=== PATIENT | female | born 1955 | race Caucasian/White ===

== ENCOUNTER → 2022-05-09 11:00 | Outpatient (BNVA) | payer MEDICARE, SELFPAY | PROVIDERS: PCP Nurse Practitioner Family; Visit Provider Psychiatry & Neurology Neurology | DX: G62.9 Polyneuropathy, unspecified (principal); R25.1 Tremor, unspecified; R26.9 Unspecified abnormalities of gait and mobility; G47.10 Hypersomnia, unspecified; R25.2 Cramp and spasm; R06.83 Snoring | CPT/HCPCS: 99202 ==

== ENCOUNTER 2022-05-30 12:41 | Outpatient (REF) | payer MEDICARE, MEDICAID, SELFPAY ==
--- NOTE | ~2022-05-30 | MR_ITS ---
EXAMINATION: MR BRAIN WITHOUT CONTRAST CLINICAL INFORMATION: Abnormalities of gait and mobility COMPARISON: None TECHNIQUE: Multiplanar multisequence MR imaging of the brain was obtained without intravenous contrast. FINDINGS: There is no acute infarct on diffusion-weighted imaging. There is no intracranial hemorrhage on iron-sensitive imaging. No extra-axial collection or mass effect/herniation. Patchy T2/FLAIR signal abnormality involving the supratentorial and predominantly periventricular white matter. No hydrocephalus. There is a degree of generalized cerebral volume loss with prominence of both the ventricles and sulcal spaces. However, there appears to be mildly disproportionate prominence of the ventricles. The major flow voids at the skull base are preserved. The midline structures are normal. The cerebellar tonsils are normally positioned. Evidence of postsurgical changes and deformity of the craniocervical junction with dorsal susceptibility artifact, ventral leaning of the dens process, and reversal of the usual cervical lordosis. Marrow signal is within normal limits. The visualized soft tissues are without significant abnormality. No signal abnormality within the paranasal sinuses or within the mastoid air cells. MR/MR head/brain wo con IMPRESSION: 1. Ventriculomegaly which appears somewhat out of proportion to the degree of cerebral volume loss. Recommend clinical correlation for normal pressure hydrocephalus. 2. Patchy T2/FLAIR signal abnormality involving the supratentorial and predominantly periventricular white matter. This may reflect sequela of chronic microvascular ischemia, although chronic demyelinating disease is not excluded. 3. Deformity and postsurgical changes involving the craniocervical junction is partially visualized and not well characterized. Correlate with clinical history and prior imaging.
== END 2022-05-30 12:42 | disposition home or self-care (01) ==
LOC: HO.MRI 12:41
PROVIDERS: Visit Provider Psychiatry & Neurology Neurology
DX: R26.9 Unspecified abnormalities of gait and mobility (principal)
CPT/HCPCS: 70551

== ENCOUNTER → 2022-07-20 15:00 | Outpatient (REF) | payer MEDICARE, SELFPAY | LOC: HO.SL 15:00 | PROVIDERS: Visit Provider Psychiatry & Neurology Neurology | DX: Z13.89 Encounter for screening for other disorder (principal) ==

== ENCOUNTER → 2022-09-12 10:55 | Outpatient (BNVA) | payer MEDICARE, SELFPAY | PROVIDERS: PCP Nurse Practitioner Family; Visit Provider Psychiatry & Neurology Neurology | DX: R26.9 Unspecified abnormalities of gait and mobility (principal); G62.9 Polyneuropathy, unspecified | CPT/HCPCS: 99212 ==